=== PATIENT | female | born 1945 | race African-American/Black ===

== ENCOUNTER 2017-02-27 17:47 | Emergency (ER) | payer OTHER ==
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
[2017-02-27] MEDS ORDERED: NOVOLIN R100 UNITS/ (18:06)
[2017-02-27] MEDS ORDERED: INVOKANA100 MG (18:06)
[2017-02-27] MEDS ORDERED: LIPITOR (18:07)
[2017-02-27] MEDS ORDERED: AMLODIPINE BESY10 MG (18:07)
[2017-02-27] MEDS ORDERED: COZAAR (18:07)
[2017-02-27] MEDS ORDERED: METFORMIN HCL500 M3 (18:07)
[2017-02-27] MEDS ORDERED: LO-DOSE ASPIRIN81 M1 (18:07)
== END 2017-02-27 19:22 | disposition home or self-care (01) ==
LOC: SED 17:47
DX: S39.012A Strain of muscle, fascia and tendon of lower back, initial encounter (principal); E11.9 Type 2 diabetes mellitus without complications; Z85.3 Personal history of malignant neoplasm of breast; Z90.710 Acquired absence of both cervix and uterus; Z79.4 Long term (current) use of insulin; Z79.82 Long term (current) use of aspirin; V43.62XA Car passenger injured in collision with other type car in traffic accident, initial encounter
CPT/HCPCS: 72100; 99284